=== PATIENT | female | born 1990 | race Caucasian/White ===

== ENCOUNTER 2022-06-29 10:29 | Emergency (ER) | payer BC, SELFPAY ==
[2022-06-29 10:39] VITALS: BP 141/71; PULSE 96; RESP 18; TEMP 36.1; O2SAT 97
--- NOTE | 2022-06-29 11:04 | ED.URI ---
HPI - URI/Sore Throat General Chief Complaint: Upper Respiratory Infection Stated Complaint: COVID SYMPTOMS Time Seen by Provider: 06/29/22 11:04 Source: patient Mode of arrival: ambulatory History of Present Illness HPI Narrative: 31-year-old female with a history of chronic headaches, 24 weeks presents to the ER with -- chronic frontal headaches. The headaches are bilateral. No photophobia/phonophobia. No fever or focal deficits -- she is 24 weeks without any complications at this time. -- She has nausea without any vomiting, abdominal pain or diarrhea. -- Sinus fullness with nasal congestion She saw her furniture delivery driver who advised her Fioricet. MD elicited complaint: nasal congestion Onset (ago): day(s) Consistency: intermittent Severity: moderate Able to tolerate fluids by mouth: Yes Exacerbating factors: nothing Relieving factors: nothing Associated symptoms: denies other symptoms and headache Related Data Home Medications Medication Instructions Recorded Confirmed [id number] 3-fat com #1 27 1 cap PO DAILY 06/29/22 06/29/22 mg-1 mg-300 mg capsule Allergies Allergy/AdvReac Type Severity Reaction Status Date / Time No Known Allergies Allergy Verified 06/29/22 10:50 Review of Systems Review of Systems: All systems reviewed & are unremarkable except as noted in HPI and below Constitutional: Constitutional: Reports as per HPI and Reports no additional constitutional complaints Eyes: Eyes: Reports as per HPI and Reports no additional eye complaints ENT: Reports system reviewed and no additional complaints, except as documented, Reports as per HPI and Reports nasal congestion Cardiovascular: Cardiovascular: Reports as per HPI and Reports no additional cardiovascular complaints Respiratory: Respiratory: Reports as per HPI and Reports no additional respiratory complaints Gastrointestinal: Gastrointestinal: Reports as per HPI and Reports no additional gastrointestinal complaints Genitourinary: Genitourinary: Reports no additional female genitourinary complaints and Reports as per HPI Musculoskeletal: Musculoskeletal: Reports no additional musculoskeletal complaints and Reports as per HPI Integumentary/Breasts: Skin/Breast: Reports system reviewed and no additional complaints, except as docu Neurologic: Reports system reviewed and no additional complaints, except as documented and Reports as per HPI Psychiatric: Psychiatric: Reports no additional psychiatric complaints and Reports as per HPI Endocrine: Endocrine: Reports no additional endocrine complaints and Reports as per HPI Hematologic/Lymphatic: Hematologic/Lymphatic: Reports no additional hematologic/lymphatic complaints and Reports as per HPI Allergic/Immunologic: Allergic/Immunologic: Reports no additional allergic/immunologic complaints and Reports as per HPI [facility] Surgical History Surgical History (Updated 06/29/22 @ 11:29 by Nawaf Gonzalez MD) Previous section Exam Const: General: healthy appearing Nutritional Appearance: well nourished Orientation/consciousness: patient oriented x3 Limitations: no limitations HENMT: Head: normal to inspection Ears: external ears normal General nose exam: Normal external nose present Face and sinus: normal facial exam Mouth: Yes Normal oral and palatal mucosa present Throat: posterior oropharynx normal Eyes: Conjunctivae: conjunctivae normal Pupils: Equal, round and reactive pupils present EOM: EOMs intact bilaterally Direct Ophthalmoscopy: no photophobia Neck: Neck: normal visual inspection, no lymphadenopathy and no meningeal signs Chest: Chest palpation & inspection: normal inspection of the chest Resp: Effort & Inspection: normal respiratory effort Auscultation: clear to auscultation bilaterally Cardio: Rate: regular rate Rhythm: regular rhythm GI: GI Palp: Yes Soft to palpation Auscultation: normal bowel sounds Other: no tendernes
[2022-06-29 11:29] LABS: Influenza A QL RT-PCR Negative (Negative); Influenza B QL RT-PCR Negative (Negative); SARS-CoV-2 RNA PCR Negative (Negative)
--- NOTE | 2022-06-29 11:47 | PC.NURSE ---
COVID and flu testing negative, fijimmy brought back from waiting room. Pt attempting to urinate for sample at this time.
[2022-06-29 11:53] LABS: Add Urine Microscopic? YES; Appearance Urine Clear (Clear); Bilirubin Urine Negative (Negative); Blood Urine Negative (Negative); Color Urine Yellow (Yellow); Glucose Urine UA Trace (Negative); Ketones Urine Negative (Negative); Leukocyte Esterase Ur Negative (Negative); Nitrate Urine Negative (Negative); Protein Urine Negative (Negative); Urobilinogen Urine 0.2 mg/dL (0.2-1.0)
[2022-06-29 11:57] LABS: Bacteria Urine 1+ /hpf; RBC Urine 0-2 /hpf (0-2); Squamous Epithelial Cell Urine Few /hpf (Few); WBC Urine 0-3 /hpf (0-3)
[2022-06-29 12:06] LABS: Basophils Absolute Auto 0.03 K/mm3 (0.00-0.10); Basophils Percent Auto 0.5 % (0.0-1.0); Eosinophils Percent Auto 1.5 % (1.0-6.0); Hematocrit 35.8 % (35.0-49.0); Hemoglobin 12.3 g/dL (12.0-15.0); Immature Granulocyte Absolute 0.03 K/mm3 (0.00-0.00); Immature Granulocyte Percent A 0.5 % (0.0-0.0); Lymphocytes Absolute Auto 1.05 K/mm3 (1.10-4.50); Lymphocytes Percent Auto 16.2 % (18.0-42.0); Mean Corpuscular HGB Conc 34.4 g/dL (32.0-36.0); Mean Corpuscular Hemoglobin 31.5 pg (27.0-31.0); Mean Corpuscular Volume 91.6 fL (78.0-102.0); Mean Platelet Volume 10.4 fl (9.2-11.8); Monocytes Absolute Auto 0.51 K/mm3 (0.10-0.90); Monocytes Percent Auto 7.8 % (2.0-11.0); Neutrophils Absolute Auto 4.8 K/mm3 (1.7-7.2); Neutrophils Percent Auto 73.5 % (50.0-70.0); Platelet Count Result 257 K/mm3 (150-420); Red Blood Count 3.91 M/mm3 (4.20-5.40); Red Cell Distribution Width 12.1 % (11.6-14.4); White Blood Count 6.5 K/mm3 (4.8-10.8)
[2022-06-29 12:23] LABS: Alanine Aminotransferase 16 U/L (14-59); Alkaline Phosphatase 76 U/L (46-116); Anion Gap 8 mmol/L (8-16); Aspartate Amino Transferase 15 U/L (15-37); Bilirubin,Total 0.2 mg/dL (0.00-1.00); Blood Urea Nitrogen 5 mg/dL (7-18); Calcium 9.1 mg/dL (8.5-10.1); Carbon Dioxide 25 mmol/L (21-32); Chloride 102 mmol/L (98-108); Estimated Glomerular Filt Rate > 60; Glucose 91 mg/dL (70-99); Osmolality Calculated 277 mOsm/kg (285-295); Potassium 3.8 mmol/L (3.5-5.1); Sodium 135 mmol/L (136-145); Total Protein 7.1 g/dL (6.4-8.2)
[2022-06-29] MEDS: METOCLOPRAMIDE HCL 10 MG/10 ML SOLN UDC PO (12:28)
[2022-06-29] MEDS: ACETAMINOPHEN 500 MG TABLET 1000 MG PO (12:28)
[2022-06-29 12:53] VITALS: BP 121/60; PULSE 84; RESP 16; TEMP 36.2; O2SAT 99
== END 2022-06-29 12:53 | disposition home or self-care (01) ==
PROVIDERS: Emergency Provider Internal Medicine Critical Care Medicine
DX: Z33.1 Pregnant state, incidental (principal); R51.9 Headache, unspecified; J06.9 Acute upper respiratory infection, unspecified; Z20.822 Contact with and (suspected) exposure to COVID-19
CPT/HCPCS: 36415; 80053; 81001; 85025; 87502; 99283; A9270; C9803; U0003; U0005

== ENCOUNTER 2022-07-01 21:03 | Emergency (ER) | payer BC, SELFPAY ==
--- NOTE | 2022-07-01 21:06 | ED.URI ---
HPI - URI/Sore Throat General Chief Complaint: Upper Respiratory Infection Stated Complaint: CONGESTION Time Seen by Provider: 07/01/22 21:06 Source: patient and RN notes reviewed Mode of arrival: ambulatory Limitations: no limitations History of Present Illness MD elicited complaint: cough and nasal congestion Onset (ago): day(s) (4) Consistency: constant Severity: moderate Description of mucous: clear Able to tolerate fluids by mouth: Yes Relieving factors: nothing Associated symptoms: fever (subjective), myalgias, headache, nasal congestion, cough, chest pain ( hurts her chest cough) and nausea Treatments prior to arrival: acetaminophen Related Data Home Medications Medication Instructions Recorded Confirmed [id number]-omega 3-fat com #1 27 1 cap PO DAILY 06/29/22 07/01/22 mg-1 mg-300 mg capsule Allergies Allergy/AdvReac Type Severity Reaction Status Date / Time No Known Allergies Allergy Verified 06/29/22 10:50 Review of Systems Review of Systems: All systems reviewed & are unremarkable except as noted in HPI and below PMFSH Past Medical History Medical History (Updated 07/02/22 @ 00:00 by Justo Matthew) Chronic headache Morbid obesity Surgical History Surgical History Previous section Social History Social History (Updated 07/01/22 @ 21:24 by Giovanny Hanks MD) Smoking status: Never smoker Exam Const: General: healthy appearing, no acute distress and alert Nutritional Appearance: obese morbidly obese Orientation/consciousness: patient oriented x3 Limitations: no limitations HENMT: Head: normal to inspection Ears: external ears normal Eyes: Conjunctivae: conjunctivae normal Pupils: Equal, round and reactive pupils present EOM: EOMs intact bilaterally Neck: Neck: normal visual inspection Resp: Effort & Inspection: normal respiratory effort Auscultation: clear to auscultation bilaterally Cardio: Rate: regular rate Rhythm: regular rhythm GI: GI Palp: Yes Soft to palpation and No Tenderness to palpation present (GI) Auscultation: normal bowel sounds Back/Spine/Pelvis: Cervical Spine: cervical ROM normal Thoracic/Lumbar Spine: thoraco-lumbar ROM normal Skin: General skin exam: normal color Rashes: no rashes Neuro: General: patient oriented x3, moves all extremities, no focal motor deficits and CN's II-XI intact bilaterally Speech: normal speech Gait exam (Neuro): Normal gait present Extrem: General: normal to inspection and no clubbing, cyanosis or edema Psych: Mental Status: mental status grossly normal Affect: normal affect Attitude: cooperative Course Vital Signs Vital signs: Vital Signs Temperature 36.7 C 07/01/22 21:14 Pulse Rate 90 07/01/22 21:14 Respiratory Rate 18 07/01/22 21:14 Blood Pressure 128/60 07/01/22 21:14 Pulse Oximetry 98 07/01/22 21:14 Oxygen Delivery Room Air 07/01/22 21:14 Temperature 36.7 C 07/01/22 21:14 Pulse Rate 80 07/01/22 22:53 Respiratory Rate 16 07/01/22 22:53 Blood Pressure 125/76 07/01/22 22:53 Pulse Oximetry 99 07/01/22 22:53 Oxygen Delivery Room Air 07/01/22 22:53 MDM - URI/Sore Throat Lab Data Attestation: I reviewed the patient's lab results. Result diagrams: 07/01/22 21:46 07/01/22 21:46 Labs: Lab Results 07/01/22 07/01/22 07/01/22 Range/Units 21:46 21:46 21:46 WBC 8.2 (4.8-10.8) K/mm3 RBC 3.79 L (4.20-5.40) M/mm3 Hgb 11.7 L (12.0-15.0) g/dL Hct 34.5 L (35.0-49.0) % MCV 91.0 (78.0-102.0) fL MCH 30.9 (27.0-31.0) pg MCHC 33.9 (32.0-36.0) g/dL RDW 11.9 (11.6-14.4) % Plt Count 258 (150-420) K/mm3 MPV 10.4 (9.2-11.8) fl Immature Gran % (Auto) 0.1 H (0.0-0.0) % Neut % (Auto) 76.4 H (50.0-70.0) % Lymph % (Auto) 17.0 L (18.0-42.0) % [place] % (Auto) 5.1 (2.0-11.0) % Eos % (Auto) 1.0 (1.0-6.0) % Baso
[2022-07-01 21:14] VITALS: BP 128/60; PULSE 90; RESP 18; TEMP 36.7; O2SAT 98
[2022-07-01 21:50] LABS: Basophils Absolute Auto 0.03 K/mm3 (0.00-0.10); Basophils Percent Auto 0.4 % (0.0-1.0); Eosinophils Absolute Auto 0.08 K/mm3 (0.02-0.50); Hematocrit 34.5 % (35.0-49.0); Hemoglobin 11.7 g/dL (12.0-15.0); Immature Granulocyte Absolute 0.01 K/mm3 (0.00-0.00); Immature Granulocyte Percent A 0.1 % (0.0-0.0); Mean Corpuscular HGB Conc 33.9 g/dL (32.0-36.0); Mean Corpuscular Hemoglobin 30.9 pg (27.0-31.0); Mean Platelet Volume 10.4 fl (9.2-11.8); Monocytes Absolute Auto 0.42 K/mm3 (0.10-0.90); Monocytes Percent Auto 5.1 % (2.0-11.0); Neutrophils Absolute Auto 6.3 K/mm3 (1.7-7.2); Neutrophils Percent Auto 76.4 % (50.0-70.0); Platelet Count Result 258 K/mm3 (150-420); Red Blood Count 3.79 M/mm3 (4.20-5.40); Red Cell Distribution Width 11.9 % (11.6-14.4); White Blood Count 8.2 K/mm3 (4.8-10.8)
[2022-07-01 22:07] LABS: Alanine Aminotransferase 14 U/L (14-59); Albumin Level 2.7 g/dL (3.4-5.0); Alkaline Phosphatase 73 U/L (46-116); Anion Gap 8 mmol/L (8-16); Aspartate Amino Transferase 14 U/L (15-37); Bilirubin,Total 0.2 mg/dL (0.00-1.00); Blood Urea Nitrogen 9 mg/dL (7-18); Carbon Dioxide 23 mmol/L (21-32); Chloride 104 mmol/L (98-108); Estimated Glomerular Filt Rate > 60; Glucose 154 mg/dL (70-99); Magnesium 1.9 mg/dL (1.8-2.4); Osmolality Calculated 281 mOsm/kg (285-295); Potassium 3.6 mmol/L (3.5-5.1); Sodium 135 mmol/L (136-145); Total Protein 6.5 g/dL (6.4-8.2)
[2022-07-01 22:09] LABS: Lactic Acid Reflex 1.1 mmol/L (0.4-2.0)
[2022-07-01 22:33] LABS: SARS-CoV-2 RNA PCR Negative (Negative)
[2022-07-01 22:53] VITALS: BP 125/76; PULSE 80; RESP 16; O2SAT 99
== END 2022-07-01 22:54 | disposition home or self-care (01) ==
PROVIDERS: Emergency Provider Emergency Medicine
DX: J06.9 Acute upper respiratory infection, unspecified (principal); Z20.822 Contact with and (suspected) exposure to COVID-19
CPT/HCPCS: 36415; 80053; 83605; 83735; 85025; 86140; 99283; C9803; U0003; U0005

== ENCOUNTER 2022-09-13 07:55 | Observation (INO) | payer OTHER, SELFPAY ==
[2022-09-13 08:16] VITALS: BP 118/61; PULSE 92
--- NOTE | 2022-09-13 08:22 | OBADM ---
This patient, Allegra Moon, admitted to the OB room OB Post 116 for observation. Patient/family oriented to hospital policies and general routines including ID bracelet, bed and alarms, visiting hours, pain management, procedures, bathroom and other care routines, personal items, smoking policy, room service/diet, and visiting hours. Patient/Family are encouraged to report perceived risks to care and to ask questions if they do not understand what they are told or what they should do.
[2022-09-13 08:31] VITALS: BP 113/60; PULSE 94
[2022-09-13 08:43] LABS: Appearance Urine Clear (Clear); Bilirubin Urine Negative (Negative); Blood Urine Negative (Negative); Color Urine Yellow (Yellow); Glucose Urine UA Negative (Negative); Ketones Urine 2+ mg/dL (Negative); Leukocyte Esterase Ur Negative LEU/UL (Negative); Nitrate Urine Negative (Negative); Protein Urine Negative (Negative); Specific Grav Ur 1.025 (1.001-1.035); Urobilinogen Urine 0.2 mg/dL (<2.0); pH Urine 5.5 (5.0-9.0)
[2022-09-13 08:45] VITALS: BP 112/56; PULSE 97
[2022-09-13 08:50] LABS: Bacteria Urine Trace /hpf; Mucus Urine Rare /lpf; RBC Urine 0-2 /hpf (0-2); Squamous Epithelial Cell Urine Few /hpf (Few); WBC Urine 0-3 /hpf
[2022-09-13 09:01] VITALS: BP 111/80; PULSE 98
[2022-09-13 09:07] LABS: Add Urine Microscopic? YES
[2022-09-13 09:16] VITALS: BP 113/67; PULSE 98
[2022-09-13 09:30] VITALS: BP 116/61; PULSE 95
[2022-09-13] MEDS: LOPERAMIDE HCL 2 MG CAPSULE 4 MG PO (09:33)
--- NOTE | 2022-10-04 03:23 | P.PNOB_ITS ---
OB - Triage/Final Diagnosis Visit Information Comments/Additional reasons for admission: I have assessed the risk for this patient, Allegra Moon, and determined that she would benefit from observation care. Evaluation Laboratory results: Laboratory Tests 09/13/22 08:13 Urine Color Yellow Urine Appearance Clear Urine pH 5.5 Ur Specific [place] 1.025 Urine Protein Negative Urine Glucose (UA) Negative Urine Ketones 2+ H Ur Blood (Man) Negative Urine Nitrate Negative Urine Bilirubin Negative Urine Urobilinogen 0.2 Leukocyte Esterase Rfl Negative Urine RBC 0-2 Urine WBC 0-3 Ur Squamous Epith Cells Few Urine Bacteria Trace Urine Mucus Rare Final Diagnosis (1) False labor: Code(s): O47.9 - False labor, unspecified Status: Acute
== END 2022-09-13 10:24 | disposition home or self-care (01) ==
PROVIDERS: Admitting Provider Obstetrics & Gynecology; Visit Provider Obstetrics & Gynecology
DX: O47.03 False labor before 37 completed weeks of gestation, third trimester (principal); Z3A.35 35 weeks gestation of pregnancy
CPT/HCPCS: 81001; A9270; G0378; G0379

== ENCOUNTER 2022-09-15 11:49 | Observation (INO) | payer OTHER, SELFPAY ==
[2022-09-15 12:40] VITALS: BP 97/51; PULSE 73
[2022-09-15 12:46] VITALS: BP 105/61; PULSE 78
[2022-09-15 13:01] VITALS: BP 91/58; PULSE 74
[2022-09-15] MEDS: LACTATED RINGERS 1,000 ML 125 ML IV CONT (13:21)
[2022-09-15] MEDS: cefTRIAXone 2 GM in SODIUM CHLORIDE 0.9% IV 100 ML 200 ML IVPB (13:23)
[2022-09-15 14:00] VITALS: BMI 44.1
--- NOTE | 2022-09-15 15:56 | PM.IMHP ---
H&P: HPI History of Present Illness Date/Time: 09/15/22 15:56 Chief Complaint: Diarrhea Narrative: this patient is a 32-year-old multiparous female at 35 weeks gestation who presents for evaluation treatment of acute diarrhea. Patient was exposed to a possibly salmonella. Multiple family members have acute diarrhea and 1 is known to have tested positive for salmonella. She has no fever currently. She feels some dizziness and is lightheaded. She has a complicated by gestational diabetes. We agreed to obtain stool sample and start antibiotics. Give her IV fluids today. She will be discharged shortly with a repeat prescription for 4 vials ceftriaxone. She will get 2 g every day for 2 days. Review of Systems Review of Systems: All systems reviewed & are unremarkable except as noted in HPI and below Constitutional: Constitutional: Denies chills, Denies fatigue, Denies fever(s) and Denies weakness Eyes: Eyes: Denies blurry vision, Denies change in vision, Denies loss of peripheral vision, Denies loss of vision, Denies other visual disturbances and Denies eye pain ENT: Denies vertigo, Denies dizziness, Denies hearing loss, Denies mouth pain, Denies nasal obstruction, Denies neck mass and Denies neck pain Cardiovascular: Cardiovascular: Denies chest pain, Denies diaphoresis, Denies syncope, Denies leg edema and Denies dyspnea Respiratory: Respiratory: Denies chest congestion, Denies cough, Denies hemoptysis, Denies dyspnea and Denies wheezing Gastrointestinal: Gastrointestinal: Denies abdominal pain, Denies constipation, Denies diarrhea, Denies nausea and Denies vomiting Genitourinary: Genitourinary: Denies hematuria, Denies change in libido, Denies nocturia, Denies genital lesions, Denies flank pain and Denies urinary urgency Musculoskeletal: Musculoskeletal: Denies abnormal gait, Denies back pain, Denies myalgias, Denies arthralgias, Denies joint swelling, Denies muscle weakness and Denies neck pain Integumentary/Breasts: Skin/Breast: Denies swelling, Denies breast pain, Denies breast mass, Denies dry skin, Denies nipple discharge, Denies unusual bruising and Denies jaundice Neurologic: Denies Neuro-related abnormal movements, Denies Abnormal speech present, Denies abnormal gait, Denies behavioral changes, Denies confusion, Denies vertigo, Denies dizziness, Denies syncope, Denies loss of vision, Denies memory loss, Denies convulsions and Denies weakness Psychiatric: Psychiatric: Denies abnormal sleep pattern, Denies behavioral changes, Denies change in libido, Denies confusion, Denies depression, Denies anhedonia and Denies memory loss Endocrine: Endocrine: Reports no additional endocrine complaints, Denies change in libido and Denies fatigue Hematologic/Lymphatic: Hematologic/Lymphatic: Reports no additional hematologic/lymphatic complaints Allergic/Immunologic: Allergic/Immunologic: Reports no additional allergic/immunologic complaints and Denies wheezing PMFSH Past Medical History Medical History (Updated 09/15/22 @ 16:03 by Tab Ellsworth MD) Chronic headache Morbid obesity Surgical History Surgical History Previous section Social History Social History (Updated 07/01/22 @ 21:24 by Giovanny Hanks MD) Smoking status: Never smoker Meds Home Medications and Allergies Home Medications Medication Instructions Recorded Confirmed Type [id number]-[id number]-omega 3-fat com #1 27 1 cap PO DAILY 06/29/22 09/13/22 History mg-1 mg-300 mg capsule insulin NPH isoph U-100 human 100 30 unit subcut HS 09/13/22 09/13/22 History unit/mL subcutaneous cartridge Allergies Allergy/AdvReac Type Severity Reaction Status Date / Time No Known Allergies Allergy Verified 06/29/22 10:50 Vital Signs Vital Signs - 24 hr 09/15/22 12:40 09/15/22 12:46 09/15/22 13:01 Pulse Rate 73 78 74 Blood Pressure 97/51 L 105/61 91/58 L Exam Const:
[2022-09-15 17:19] VITALS: BP 91/58; PULSE 74
--- NOTE | 2022-10-14 02:06 | PM.OBTRLD ---
OB - Triage/Final Diagnosis Visit Information Comments/Additional reasons for admission: I have assessed the risk for this patient, Allegra Moon, and determined that she would benefit from observation care. Final Diagnosis (1) False labor: Code(s): O47.9 - False labor, unspecified Status: Acute
== END 2022-09-15 16:25 | disposition home or self-care (01) ==
PROVIDERS: Admitting Provider Obstetrics & Gynecology; Visit Provider Obstetrics & Gynecology
DX: O26.893 Other specified pregnancy related conditions, third trimester (principal); R19.7 Diarrhea, unspecified; O24.419 Gestational diabetes mellitus in pregnancy, unspecified control; Z3A.35 35 weeks gestation of pregnancy; Z79.4 Long term (current) use of insulin; Z79.899 Other long term (current) drug therapy
CPT/HCPCS: 59025; 87045; 87186; 87427; 96374; G0378; G0379; J0696; J7120

== ENCOUNTER 2022-09-22 18:19 | Observation (INO) | payer OTHER, SELFPAY ==
[2022-09-22] VITALS (19 sets, daily range): BP systolic 111–121; BP diastolic 56–73; PULSE 92–111; TEMP 36.9–37.7; O2SAT 98–99
--- NOTE | 2022-09-22 18:19 | PC.NURSE ---
PT here for complains of cramping. states she had c section with first baby due to macrosomia. Pt states she has back pain, has not drink much water because having nausea. urine appears dark. encouraged PO hydration.
[2022-09-22 19:26] LABS: Appearance Urine Clear (Clear); Bilirubin Urine 1+ (Negative); Blood Urine Negative (Negative); Color Urine Yellow (Yellow); Glucose Urine UA Negative (Negative); Ketones Urine 4+ mg/dL (Negative); Leukocyte Esterase Ur Negative LEU/UL (Negative); Nitrate Urine Negative (Negative); Protein Urine 2+ mg/dL (Negative); Specific Grav Ur 1.025 (1.001-1.035); Urobilinogen Urine 0.2 mg/dL (<2.0)
[2022-09-22 19:29] LABS: Bacteria Urine Trace /hpf; Mucus Urine Rare /lpf; Squamous Epithelial Cell Urine Many /hpf (Few)
[2022-09-22 19:30] LABS: Add Urine Microscopic? YES
[2022-09-22] MEDS: ACETAMINOPHEN 500 MG TABLET 1000 MG PO (20:14)
[2022-09-22] MEDS: LACTATED RINGERS 1,000 ML 999 ML IV CONT (21:34)
[2022-09-22] MEDS: TERBUTALINE SULFATE 1 MG/ML VIAL 0.25 MG SUB-Q (21:34)
[2022-09-22 21:41] LABS: Basophils Percent Auto 0.3 % (0.2-1.2); Eosinophils Percent Auto 0.4 % (0-4.4); Hematocrit 35.8 % (37.0-47.0); Hemoglobin 11.9 g/dL (12.0-15.0); Immature Granulocyte Absolute 0.05 K/mm3 (0.00-0.031); Immature Granulocyte Percent A 0.7 % (0-0.5); Lymphocytes Absolute Auto 0.82 K/mm3 (0.9-3.2); Lymphocytes Percent Auto 10.7 % (18.3-44.2); Mean Corpuscular HGB Conc 33.2 g/dl (32-36); Mean Corpuscular Hemoglobin 30.3 pg (26-34); Mean Corpuscular Volume 91.1 fl (80-100); Mean Platelet Volume 10.5 fl (7.4-10.4); Monocytes Absolute Auto 0.4 K/mm3 (0.1-0.6); Monocytes Percent Auto 4.6 % (2.6-8.5); Neutrophils Absolute Auto 6.4 K/mm3 (1.3-6.7); Neutrophils Percent Auto 83.3 % (45.5-73.1); Platelet Count Result 252 k/mm3 (150-375); Red Blood Count 3.93 M/mm3 (4.2-5.4); Red Cell Distribution Width 12.8 % (11.5-14.5); White Blood Count 7.7 K/mm3 (4.5-10.0)
--- NOTE | 2022-10-14 01:56 | P.PNOB_ITS ---
OB - Triage/Final Diagnosis Visit Information Comments/Additional reasons for admission: I have assessed the risk for this patient, Allegra Moon, and determined that she would benefit from observation care. Evaluation Laboratory results: Laboratory Tests 09/22/22 09/22/22 19:14 21:37 WBC 7.7 RBC 3.93 L Hgb 11.9 L Hct 35.8 L MCV 91.1 MCH 30.3 MCHC 33.2 RDW 12.8 Plt Count 252 MPV 10.5 H Immature Gran % (Auto) 0.7 H Neut % (Auto) 83.3 H Lymph % (Auto) 10.7 L [place] % (Auto) 4.6 Eos % (Auto) 0.4 Baso % (Auto) 0.3 Lymph # (Auto) 0.82 L [place] # (Auto) 0.4 Eos # (Auto) 0.0 Baso # (Auto) 0.0 Abs Immat Gran (auto) 0.05 H Absolute Neuts (auto) 6.4 Absolute Nucleated RBC 0.0 Nucleated RBC % 0.0 Urine Color Yellow Urine Appearance Clear Urine pH 6.0 Ur Specific [place] 1.025 Urine Protein 2+ H Urine Glucose (UA) Negative Urine Ketones 4+ H Ur Blood (Man) Negative Urine Nitrate Negative Urine Bilirubin 1+ H Urine Urobilinogen 0.2 Leukocyte Esterase Rfl Negative Urine RBC 3-5 H Urine WBC 4-6 H Ur Squamous Epith Cells Many H Urine Bacteria Trace Urine Mucus Rare Final Diagnosis (1) False labor: Code(s): O47.9 - False labor, unspecified Status: Acute
== END 2022-09-22 22:45 | disposition home or self-care (01) ==
PROVIDERS: Admitting Provider Obstetrics & Gynecology; Visit Provider Obstetrics & Gynecology
DX: O47.9 False labor, unspecified (principal); Z3A.36 36 weeks gestation of pregnancy
CPT/HCPCS: 36415; 81001; 85025; 96372; A9270; G0378; G0379; J3105; J7120

== ENCOUNTER 2022-09-29 21:37 | Observation (INO) | payer OTHER, SELFPAY ==
[2022-09-29 22:27] LABS: Glucose Point of Care 112 mg/dl (65-105)
[2022-09-29 22:37] VITALS: BP 117/65; PULSE 83; RESP 18; TEMP 36.4
--- NOTE | 2022-09-29 22:50 | PC.NURSE ---
PT appeared to have some uterine irritability. Upon RN entering room PT pushing on TOCO. PT advised not to push on or alter TOCO because it can give false results. PT verbalizes understanding.
--- NOTE | 2022-09-29 23:00 | PC.NURSE ---
Dr. Ellsworth notified of PTs arrival to unit with c/o of increased blood sugars in the 180s. BS on admission was 112, RN instructed PT to take BS on her machine at this time and the results were 149. Vitals WNL. PT states she feels some contractions. PT appears to have some Uterine irritability but, Upon walking in PTs room RN noticed PT pushing on TOCO. RN at bedside to palpate abdomen, abdomen soft to palpation. Per Dr. Ellsworth PT to take insulin when she gets home. Discharge orders received.
[2022-09-29 23:09] VITALS: BMI 45.6
--- NOTE | 2022-09-29 23:11 | OBADM ---
This patient, Allegra Moon, admitted to the OB room OB Post 117 for observation. Patient/family oriented to hospital policies and general routines including ID bracelet, bed and alarms, visiting hours, pain management, procedures, bathroom and other care routines, personal items, smoking policy, room service/diet, and visiting hours. Patient/Family are encouraged to report perceived risks to care and to ask questions if they do not understand what they are told or what they should do.
--- NOTE | 2022-09-29 23:20 | PC.NURSE ---
RNTab at bedside discharge instructions explained to PT. PT advised to take insulin when returning home. RN explained plan of care to PT and significant other. PT verbalizes understanding.
--- NOTE | 2022-10-23 20:45 | PM.OBTRLD ---
OB - Triage/Final Diagnosis Visit Information Comments/Additional reasons for admission: I have assessed the risk for this patient, Allegra Moon, and determined that she would benefit from observation care. Evaluation Laboratory results: Laboratory Tests 09/29/22 22:00 POC Capillary Glucose 112 H Final Diagnosis (1) Gestational diabetes: Code(s): O24.419 - Gestational diabetes mellitus in , unspecified control Status: Acute
== END 2022-09-29 23:25 | disposition home or self-care (01) ==
PROVIDERS: Admitting Provider Obstetrics & Gynecology; Visit Provider Obstetrics & Gynecology
DX: O24.419 Gestational diabetes mellitus in pregnancy, unspecified control (principal); Z3A.00 Weeks of gestation of pregnancy not specified
CPT/HCPCS: 82948; G0378; G0379

== ENCOUNTER 2022-10-04 18:16 | Observation (INO) | payer OTHER, SELFPAY ==
[2022-10-04] VITALS (7 sets, daily range): BP systolic 116–141; BP diastolic 48–71; PULSE 90–153; BMI 46.6
[2022-10-04 20:44] LABS: Glucose Point of Care 93 mg/dl (65-105)
--- NOTE | 2022-10-04 21:10 | ECG_ITS ---
Measurements Intervals [place] Rate: 100 P: 6 DE: 143 QRS: 63 QRSD: 101 T: 0 QT: 345 QTc: 446 Interpretive Statements SINUS TACHYCARDIA BORDERLINE ECG NO PREVIOUS ECG AVAILABLE FOR COMPARISON Electronically Signed On 10-11-2022 17:30:03 [employer] by Luis Manuel Mejia M.D.
--- NOTE | 2022-10-04 23:30 | LDADM ---
This patient, Allegra Moon, was admitted to Labor/Delivery/Recovery 120 on 10/04/22 at 18:16. Plans for labor, pain management and were discussed with patient. Patient/family oriented to hospital policies and general routines including ID bracelet, bed and alarms, visiting hours, pain management, procedures, bathroom and other care routines, personal items, smoking policy, room service/diet and guest tray routines, infant security routines, and visiting hours. Patient/Family are encouraged to report perceived risks to care and to ask questions if they do not understand what they are told or what they should do. See OBIX for further documentation.
--- NOTE | 2022-10-24 08:43 | PM.OBTRLD ---
OB - Triage/Final Diagnosis Visit Information Comments/Additional reasons for admission: I have assessed the risk for this patient, Allegra Moon, and determined that she would benefit from observation care. Evaluation Laboratory results: Laboratory Tests 10/04/22 20:41 POC Capillary Glucose 93 Final Diagnosis (1) Irregular contractions: Code(s): O47.9 - False labor, unspecified Status: Acute
== END 2022-10-04 22:45 | disposition other institution (70) ==
PROVIDERS: Admitting Provider Obstetrics & Gynecology; Visit Provider Obstetrics & Gynecology
DX: O47.9 False labor, unspecified (principal); O24.419 Gestational diabetes mellitus in pregnancy, unspecified control; Z3A.00 Weeks of gestation of pregnancy not specified
CPT/HCPCS: 82948; 93005; G0378; G0379

== ENCOUNTER 2022-10-04 22:13 | Emergency (ER) | payer OTHER, SELFPAY ==
--- NOTE | ~2022-10-04 | CT_ITS ---
Clinical Indication: Tachypnea, dyspnea CT Scan of the Chest with Contrast: Technique: Contiguous sections were acquired throughout the chest after intravenous administration of 100 cc of Omnipaque 350. Dose reduction technique was used on this scan by utilizing automated expos ure control and iterative reconstruction technique. The dose-length product (DLP) was 727.73 mGy-cm. Findings: There is no evidence of any significant mediastinal, hilar or axillary lymphadenopathy. There is no f illing defect in the pulmonary arterial tree to suggest pulmonary embolus. There is no evidence of ao rtic dissection or aneurysm. There is no evidence of pleural or pericardial effusion. There are 2 adjacent 3 mm left lower lobe pulmonary nodules (axial image 54). Lungs are otherwise andrea ar. Images through the upper abdomen reveal no abnormalities. Impression: No evidence of pulmonary embolus, aortic dissection, or aortic aneurysm. 2 adjacent 3 mm left lower lobe pulmonary nodules. According to Fleischner Society criteria, for a lo w-risk patient, no further follow-up required. For a high-risk patient, consider 12 month follow-up C T. Reviewed, dictated and finalized at location . [employer] Impression: No evidence of pulmonary embolus, aortic dissection, or aortic aneurysm. 2 adjacent 3 mm left lower lobe pulmonary nodules. According to Fleischner Soci ety criteria, for a low-risk patient, no further follow-up required. For a high -risk patient, consider 12 month follow-up CT.
[2022-10-04 22:18] VITALS: BP 123/77; PULSE 93; RESP 19; TEMP 36.6; O2SAT 98
--- NOTE | 2022-10-04 22:42 | ED.GENADULT ---
HPI - General Adult General Chief complaint: Unspecified Stated complaint: Unspecified Time Seen by Provider: 10/04/22 22:24 History of Present Illness HPI narrative: patient presented to OB with contractions; while there they saw that her HR was 153 (? though patient stated she had no sensation of heart racing at this time). She does report some dyspnea but has had this in the latter part of . Related Data Home Medications Medication Instructions Recorded Confirmed YEO-leyy-CE-omega 3-fat com #1 27 1 cap PO DAILY 06/29/22 09/13/22 mg-1 mg-300 mg capsule insulin NPH isoph U-100 human 100 30 unit subcut HS 09/13/22 09/13/22 unit/mL subcutaneous cartridge Allergies Allergy/AdvReac Type Severity Reaction Status Date / Time No Known Allergies Allergy Verified 10/04/22 22:23 Review of Systems Review of Systems: CONST: No fever. HEENT: No sore throat C/V: No palpitations RESP: Some shortness of breath GI: mild epigastric discomfort : No dysuria. M/S: No joint pain. SKIN: No rash. NEURO: [No headache or focal numbness or weakness] PSYCH: [No depression] [facility] Past Medical History Medical History Chronic headache Morbid obesity Surgical History Surgical History Previous section Social History Social History Smoking status: Never smoker Substance use: never Spiritual care concerns: No Exam Narrative: EXAMINATION OF ORGAN SYSTEMS/BODY AREAS: Constitutional: Vital signs per nursing GENERAL:[No acute distress, non-toxic appearing.] HEAD: Normal with no signs of head trauma. EYES: EOMI, conjunctiva normal ENT: Hearing grossly intact LUNGS: Nonlabored breathing. HEART: [Regular rate and rhythm] ABD: [Soft], [nontender to palpation] EXT: Normal range of motion, no lower extremity edema SKIN: [No rashes or lesions.] NEURO: [Alert and oriented x 3. No gross focal sensory or strength deficits.] PSYCH: Normal affect Course Vital Signs Vital signs: Vital Signs Temperature 97.8 F 10/04/22 22:18 Pulse Rate 93 10/04/22 22:18 Respiratory Rate 19 10/04/22 22:18 Blood Pressure 123/77 10/04/22 22:18 Pulse Oximetry 98 10/04/22 22:18 Oxygen Delivery Room Air 10/04/22 22:18 Temperature 97.8 F 10/04/22 22:18 Pulse Rate 92 10/05/22 02:18 Respiratory Rate 16 10/05/22 02:18 Blood Pressure 116/75 10/04/22 23:36 Pulse Oximetry 98 10/05/22 02:18 Oxygen Delivery Room Air 10/04/22 22:18 Medical Decision Making MDM Narrative Medical decision making narrative: 32-year-old woman presenting with dyspnea, sent by OB because she is suspected to be tachycardic, given her risk factors and reported tachycardia and dyspnea, I will obtain work-up for ruling out PE. No signs of ischemia on EKG. D-dimer is elevated. CT PE therefore obtained here which is negative for PE. Patient reassured and stable for discharge home, given return precautions and follow-up to her primary/[facility]. Vital Signs Vital Signs: Vital Signs Temperature 97.8 F 10/04/22 22:18 Pulse Rate 93 10/04/22 22:18 Respiratory Rate 19 10/04/22 22:18 Blood Pressure 123/77 10/04/22 22:18 Pulse Oximetry 98 10/04/22 22:18 Oxygen Delivery Room Air 10/04/22 22:18 Temperature 97.8 F 10/04/22 22:18 Pulse Rate 92 10/05/22 02:18 Respiratory Rate 16 10/05/22 02:18 Blood Pressure 116/75 10/04/22 23:36 Pulse Oximetry 98 10/05/22 02:18 Oxygen Delivery Room Air 10/04/22 22:18 Lab Data 10/04/22 22:55 10/04/22 22:55 Labs: Lab Results 10/04/22 10/04/22 10/04/22 Range/Units 22:55 22:55 22:55 WBC 8.9 (4.5-10.0) K/mm3 RBC 4.35 (4.2-5.4) M/mm3 Hgb 13.0 (12.0-15.0) g/dL Hct 39.6 (37.0-47.0) % MCV 91.0 (80-100) fl MCH 29.9 (26-34) p
[2022-10-04 23:01] LABS: Basophils Percent Auto 0.3 % (0.2-1.2); Eosinophils Absolute Auto 0.1 K/mm3 (0-0.3); Eosinophils Percent Auto 1.1 % (0-4.4); Hematocrit 39.6 % (37.0-47.0); Immature Granulocyte Absolute 0.03 K/mm3 (0.00-0.031); Immature Granulocyte Percent A 0.3 % (0-0.5); Lymphocytes Absolute Auto 1.99 K/mm3 (0.9-3.2); Lymphocytes Percent Auto 22.3 % (18.3-44.2); Mean Corpuscular HGB Conc 32.8 g/dl (32-36); Mean Corpuscular Hemoglobin 29.9 pg (26-34); Mean Platelet Volume 10.5 fl (7.4-10.4); Monocytes Absolute Auto 0.5 K/mm3 (0.1-0.6); Monocytes Percent Auto 5.6 % (2.6-8.5); Neutrophils Absolute Auto 6.3 K/mm3 (1.3-6.7); Neutrophils Percent Auto 70.4 % (45.5-73.1); Platelet Count Result 292 k/mm3 (150-375); Red Blood Count 4.35 M/mm3 (4.2-5.4); Red Cell Distribution Width 13.2 % (11.5-14.5); White Blood Count 8.9 K/mm3 (4.5-10.0)
[2022-10-04 23:11] LABS: Anion Gap 5 mmol/L (8-16); Blood Urea Nitrogen 10 mg/dL (7-17); Calcium 9.3 mg/dL (8.4-10.2); Carbon Dioxide 22 mmol/L (22-30); Chloride 109 mmol/L (98-107); Estimated CRCL calculation 236 ml/min; Estimated Glomerular Filt Rate > 60; Glucose 102 mg/dL (65-110); Potassium 4.1 mmol/L (3.4-5.0); Sodium 136 mmol/L (137-145)
[2022-10-04 23:29] LABS: D Dimer 1.28 ug/mL (<0.48)
[2022-10-04 23:36] VITALS: BP 116/75; PULSE 89; RESP 18; O2SAT 97
[2022-10-05 02:18] VITALS: PULSE 92; RESP 16; O2SAT 98
== END 2022-10-05 02:19 | disposition home or self-care (01) ==
PROVIDERS: Emergency Provider Emergency Medicine
DX: O26.899 Other specified pregnancy related conditions, unspecified trimester (principal); R06.00 Dyspnea, unspecified; O99.210 Obesity complicating pregnancy, unspecified trimester; E66.01 Morbid (severe) obesity due to excess calories; Z3A.00 Weeks of gestation of pregnancy not specified; Z79.4 Long term (current) use of insulin
CPT/HCPCS: 36415; 71275; 80048; 85025; 85380; 99284; Q9967

== ENCOUNTER 2022-10-10 11:32 | Outpatient (RCR) | payer OTHER, SELFPAY ==
[2022-09-19 16:49] VITALS: BP 115/58; PULSE 86
[2022-09-26 13:37] VITALS: BP 110/52; PULSE 86
[2022-10-10 12:30] VITALS: BP 114/78; PULSE 88
== END 2022-10-14 13:36 | disposition home or self-care (01) ==
LOC: ANHOBOP 11:32
PROVIDERS: Visit Provider Obstetrics & Gynecology
DX: O36.8130 Decreased fetal movements, third trimester, not applicable or unspecified (principal); Z3A.35 35 weeks gestation of pregnancy; O36.8390 Maternal care for abnormalities of the fetal heart rate or rhythm, unspecified trimester, not applicable or unspecified; Z3A.36 36 weeks gestation of pregnancy; O24.419 Gestational diabetes mellitus in pregnancy, unspecified control; Z3A.38 38 weeks gestation of pregnancy
CPT/HCPCS: 59025

== ENCOUNTER 2022-10-11 09:41 | Inpatient (IN) | payer OTHER, SELFPAY ==
[2022-10-04 20:16] VITALS: BMI 46.6
[2022-10-11] VITALS (50 sets, daily range): BP systolic 96–130; BP diastolic 57–82; PULSE 25–106; RESP 14–20; TEMP 36.1–36.4; O2SAT 95–100
[2022-10-11] MEDS: LACTATED RINGERS 1,000 ML 125 ML IV CONT ×2 (10:38→11:21)
[2022-10-11 10:44] LABS: Basophils Percent Auto 0.4 % (0.2-1.2); Eosinophils Absolute Auto 0.1 K/mm3 (0-0.3); Eosinophils Percent Auto 1.5 % (0-4.4); Hematocrit 37.1 % (37.0-47.0); Hemoglobin 12.4 g/dL (12.0-15.0); Immature Granulocyte Absolute 0.03 K/mm3 (0.00-0.031); Immature Granulocyte Percent A 0.4 % (0-0.5); Lymphocytes Absolute Auto 1.57 K/mm3 (0.9-3.2); Lymphocytes Percent Auto 23.3 % (18.3-44.2); Mean Corpuscular HGB Conc 33.4 g/dl (32-36); Mean Corpuscular Volume 89.6 fl (80-100); Monocytes Absolute Auto 0.5 K/mm3 (0.1-0.6); Neutrophils Absolute Auto 4.5 K/mm3 (1.3-6.7); Neutrophils Percent Auto 66.4 % (45.5-73.1); Platelet Count Result 235 k/mm3 (150-375); Red Blood Count 4.14 M/mm3 (4.2-5.4); Red Cell Distribution Width 12.9 % (11.5-14.5); White Blood Count 6.8 K/mm3 (4.5-10.0)
--- NOTE | 2022-10-11 11:39 | WPDHPUPDATE1 ---
History and Physical Update Update Date/Time: 10/11/22 11:39 History and Physical has been reviewed, including an updated exam of the patient. There are NO changes in the patient's condition. Risks, benefits, and alternatives have been discussed and questions answered. Patient agrees to proceed with procedure.
--- NOTE | 2022-10-11 11:40 | PM.IMHP ---
H&P: [facility] History of Present Illness Date/Time: 10/11/22 11:40 Chief Complaint: previous Narrative: this patient is a 32-year-old multiparous female with history of previous at 39 weeks gestation presents for repeat delivery. She understands that delivery can result in injury. She understands that surgical injury could result in hospitalization, more surgery, and severe illness. She understands risk of hemorrhage and infection. Her obstetric history is significant for macrosomia, gestational diabetes. Review of Systems Review of Systems: All systems reviewed & are unremarkable except as noted in HPI and below Constitutional: Constitutional: Denies chills, Denies fatigue, Denies fever(s) and Denies weakness Eyes: Eyes: Denies blurry vision, Denies change in vision, Denies loss of peripheral vision, Denies loss of vision, Denies other visual disturbances and Denies eye pain ENT: Denies vertigo, Denies dizziness, Denies hearing loss, Denies mouth pain, Denies nasal obstruction, Denies neck mass and Denies neck pain Cardiovascular: Cardiovascular: Denies chest pain, Denies diaphoresis, Denies syncope, Denies leg edema and Denies dyspnea Respiratory: Respiratory: Denies chest congestion, Denies cough, Denies hemoptysis, Denies dyspnea and Denies wheezing Gastrointestinal: Gastrointestinal: Denies abdominal pain, Denies constipation, Denies diarrhea, Denies nausea and Denies vomiting Genitourinary: Genitourinary: Denies hematuria, Denies change in libido, Denies nocturia, Denies genital lesions, Denies flank pain and Denies urinary urgency Musculoskeletal: Musculoskeletal: Denies abnormal gait, Denies back pain, Denies myalgias, Denies arthralgias, Denies joint swelling, Denies muscle weakness and Denies neck pain Integumentary/Breasts: Skin/Breast: Denies swelling, Denies breast pain, Denies breast mass, Denies dry skin, Denies nipple discharge, Denies unusual bruising and Denies jaundice Neurologic: Denies Neuro-related abnormal movements, Denies Abnormal speech present, Denies abnormal gait, Denies behavioral changes, Denies confusion, Denies vertigo, Denies dizziness, Denies syncope, Denies loss of vision, Denies memory loss, Denies convulsions and Denies weakness Psychiatric: Psychiatric: Denies abnormal sleep pattern, Denies behavioral changes, Denies change in libido, Denies confusion, Denies depression, Denies anhedonia and Denies memory loss Endocrine: Endocrine: Reports no additional endocrine complaints, Denies change in libido and Denies fatigue Hematologic/Lymphatic: Hematologic/Lymphatic: Reports no additional hematologic/lymphatic complaints Allergic/Immunologic: Allergic/Immunologic: Reports no additional allergic/immunologic complaints and Denies wheezing PMFSH Past Medical History Medical History Chronic headache Morbid obesity Surgical History Surgical History Previous section Social History Social History Smoking status: Never smoker Second hand tobacco smoke exposure: No Substance use: never Lack of Transportation: No Lack of Food: Never True Current Housing: I Have Housing Concerned About Future Housing: No Difficulty Paying Gas/Electric Bills: No Difficulty Paying for Meds: No Currently Unemployed: No Education: High School Diploma/GED Difficulty w/ Childcare or Family Care: No Spiritual care concerns: No Meds Home Medications and Allergies Home Medications Medication Instructions Recorded Confirmed Type [id number] 3-fat com #1 27 1 cap PO DAILY 06/29/22 10/11/22 History mg-1 mg-300 mg capsule insulin NPH isoph U-100 human 100 30 unit subcut HS 09/13/22 10/11/22 History unit/mL subcutaneous cartridge Allergies Allergy/AdvReac Type Severity Reaction Stat
[2022-10-11] MEDS: ceFAZolin 3 GM/D5W 100 ML 100 ML IVPB (12:01)
--- NOTE | 2022-10-11 13:41 | W.PM.PROC2 ---
Procedure Note - Detailed Date of Procedure 10/11/22 Pre-op Diagnosis Prev Post-op Diagnosis Same Procedure Performed Low-transverse section Surgeon Tab Ellsworth MD Anesthesia Spinal Findings Normal gestational maternal anatomy, average size infant, normal Apgars. Description of Procedure The patient was taken the operating room. She was prepped and draped in dorsal supine position with a leftward tilt. This was done after spinal anesthetic was applied. A low-transverse skin incision was made and carried down till of the fascia with the knife. The fascial incision was made with the knife. The fascial incision was extended laterally with Palmer scissors. The fascia was tented upward superiorly and inferiorly the rectus muscles were dissected off bluntly. The rectus muscles were the midline. The preperitoneal fat and peritoneum were dissected open bluntly at the superior aspect of the rectus muscles. The peritoneal incision was extended superior and inferior with good position of bladder. The uterine incision was made with a scalpel down to the level of the amniotic cavity. The amniotic cavity was entered bluntly. The infant was delivered. The cord was clamped and cut and the was handed off to waiting pediatric staff. Cord bloods were obtained. The placenta was removed manually. The uterus was exteriorized. The uterus was cleared of all clots, debris and membranes. The uterus was closed in 0 Vicryl running lock fashion. An imbricating over a was placed along the incision line as well. The uterus was returned to the abdomen. The gutters were cleared of all clots and debris. The fascia was closed with 0 Vicryl running fashion. The subcutaneous tissue was irrigated pinpoint bleeders were cauterized.Subcutaneous found was closed with a 3-0 Vicryl, in interrupted fashion. The skin was closed with subcuticular absorbable sammi. The skin incision line was covered with glue. The patient tolerated the procedure well. She has taken recovery room in stable condition. Sponge lap and needle counts were correct x2. Complications No immediate complications Condition Stable Disposition PACU
[2022-10-11] MEDS: KETOROLAC 30 MG/ML VIAL (*BKC) IV PUSH ×2 (13:58→17:11)
[2022-10-11 13:59] LABS: Glucose Point of Care 97 mg/dl (65-105)
[2022-10-11] MEDS: OXYTOCIN 30 UNITS/NS 500 ML 30 UNITS/500 ML BAG 125 UNITS IV CONT (14:35)
[2022-10-11] MEDS: diphenhydrAMINE HCl INJ 50 MG/ML VIAL 25 MG IV PUSH ×2 (14:56→22:16)
[2022-10-11] MEDS: LORATADINE 10 MG TABLET PO (14:58)
[2022-10-11] MEDS: DEXTROSE 5%/0.45% SOD CHL 1,000 ML 125 ML IV CONT (18:45)
[2022-10-11] MEDS: ACETAMINOPHEN 325 MG TABLET 650 MG PO (22:16)
[2022-10-12 01:00] VITALS: BP 127/74; PULSE 82; RESP 18; TEMP 36.2
[2022-10-12] MEDS: IBUPROFEN 600 MG TABLET PO ×3 (02:50→19:12)
[2022-10-12 04:35] VITALS: BP 119/57; PULSE 83; RESP 18; TEMP 36.6
[2022-10-12 05:15] LABS: Basophils Percent Auto 0.4 % (0.2-1.2); Eosinophils Absolute Auto 0.1 K/mm3 (0-0.3); Eosinophils Percent Auto 1.6 % (0-4.4); Hematocrit 34.1 % (37.0-47.0); Hemoglobin 11.2 g/dL (12.0-15.0); Immature Granulocyte Absolute 0.03 K/mm3 (0.00-0.031); Immature Granulocyte Percent A 0.4 % (0-0.5); Lymphocytes Absolute Auto 1.63 K/mm3 (0.9-3.2); Lymphocytes Percent Auto 20.6 % (18.3-44.2); Mean Corpuscular HGB Conc 32.8 g/dl (32-36); Mean Corpuscular Hemoglobin 29.9 pg (26-34); Mean Corpuscular Volume 90.9 fl (80-100); Mean Platelet Volume 11.1 fl (7.4-10.4); Monocytes Absolute Auto 0.5 K/mm3 (0.1-0.6); Monocytes Percent Auto 6.5 % (2.6-8.5); Neutrophils Absolute Auto 5.6 K/mm3 (1.3-6.7); Neutrophils Percent Auto 70.5 % (45.5-73.1); Platelet Count Result 208 k/mm3 (150-375); Red Blood Count 3.75 M/mm3 (4.2-5.4); Red Cell Distribution Width 12.9 % (11.5-14.5); White Blood Count 7.9 K/mm3 (4.5-10.0)
[2022-10-12] MEDS: ACETAMINOPHEN 325 MG TABLET 650 MG PO ×3 (07:59→23:26)
[2022-10-12] MEDS: MULTIVIT/MIN/PREN/FOL AC/IRON TABLET 1 TAB PO (07:59)
[2022-10-12] MEDS: DOCUSATE SODIUM 100 MG CAPSULE PO ×2 (08:00→17:24)
[2022-10-12 08:55] VITALS: BP 115/63; PULSE 88; RESP 18; TEMP 36.8; O2SAT 98
--- NOTE | 2022-10-12 09:51 | WPDANLDNPN2 ---
Anes-Prog Note L&D-Neuraxial Date/Time: 10/12/22 09:51 Neuraxial medications: intrathecal PF morphine Opiod-related complaints: pruritis moderate, treatment effective Patient feedback: Patient satisfied with post-operative pain management.
--- NOTE | 2022-10-12 09:52 | WPDANLDPN2 ---
Anes-Prog Note L&D Date/Time: 10/12/22 09:52 Comfortable throughout: section Neuraxial method: spinal Epidural/Spinal procedure site: clean & non-tender Neuro status: Neuro function grossly intact. Cardiovascular status: normal Respiratory status: normal Airway patency: baseline Mental status: baseline Post-Op hydration status: normal Vital Signs: Last Vital Signs Temp 98.3 F 10/12/22 08:55 Pulse 88 10/12/22 08:55 Resp 18 10/12/22 08:55 BP 115/63 10/12/22 08:55 Pulse Ox 98 10/12/22 08:55 O2 Del Method Room Air 10/11/22 15:30 Pain score (VAS): 1-2 I/O: Intake & Output 10/11/22 10/12/22 10/12/22 23:59 07:59 15:59 Intake Total 240 2800 Output Total 520 900 Balance -280 1900 Patient feedback: Patient satisfied with anesthetic care.
[2022-10-12 12:50] VITALS: BP 129/71; PULSE 88; RESP 18; TEMP 36.8; O2SAT 99
[2022-10-12 16:15] LABS: Rapid Plasma Reagin Non-Reactive (NonReactive)
[2022-10-12 23:25] VITALS: BP 145/85; PULSE 84; RESP 20; TEMP 36.7
[2022-10-13] MEDS: IBUPROFEN 600 MG TABLET PO ×2 (01:18→09:58)
[2022-10-13] MEDS: HYDROcodone/acetaminophen (*CRX) 5-325 MG TABLET 1 TAB PO ×3 (02:02→09:57)
[2022-10-13] MEDS: MULTIVIT/MIN/PREN/FOL AC/IRON TABLET 1 TAB PO (07:36)
[2022-10-13] MEDS: DOCUSATE SODIUM 100 MG CAPSULE PO (07:36)
--- NOTE | 2022-10-13 08:42 | PM.OBPNVD ---
OB - PN: Subj Subjective Date/time seen: 10/13/22 08:42 Patient comments: no complaints, pain well controlled, incisional pain, tolerating diet and flatus present OB - PN: Obj Data Labs 10/12/22 05:03 Labs: Laboratory Results - last 24 hr 10/11/22 10:36 RPR Non-reactive OB - PN A/P Plan day: 3 Plan: routine care, discharge home and other Comments: Incision check in one week. Given precautions Time Spent With Patient Time: Total time spent is greater than 50% in coordination of care (as documented) at patient's floor/unit and/or counseling patient: Exam Const: General: comfortable, no acute distress and alert Resp: Effort & Inspection: normal respiratory effort Auscultation: no crackles, no rales and no rhonchi Cardio: Rate: regular rate Heart sounds: no click, no murmurs and no rubs GI: Inspection: non-distended GI Palp: No Tenderness to palpation present (GI) Auscultation: normal bowel sounds Other: Incision - CDI Extrem: General: normal to inspection, no pedal edema and no calf tenderness
--- NOTE | 2022-10-13 08:43 | P.DS_ITS ---
DS: Admitting Diagnosis Discharge Date 10/13/22 Admitting Diagnosis term DS: Discharge Diagnosis Discharge Diagnosis (1) Previous section: Code(s): Z98.891 - History of uterine scar from previous surgery Status: Acute OB - DS: Summary OB Procedures : None OB Procedures Intrapartum: OB Procedures: : None Peripartum Data Procedures: Procedures Operation Date: 10/11/22 12:00 Actual Procedure Side Surgeon p Repeat Section Tab Ellsworth MD Time Spent with Patient Time attestation: Total time spent providing and/or coordinating discharge services: DS: Data Data Completed and Pending Labs on day of discharge: Labs from last 24 hours 10/11/22 10:36 RPR Non-reactive Discharge Plan Discharge Discharging Clinician: Tab Ellsworth Patient Disposition: Home, Self-Care Activity: pelvic rest Diet: regular Patient Instructions: Antibiotic Form Stand Alone Forms: General Discharge Information Follow-up/Referrals: Tab Ellsworth MD [Physician] - Discharge Medications: New hydrocodone-acetaminophen 5-325 mg tablet 1 tablet PO Q4H PRN (Reason: pain) Qty: 25 0RF Discontinued [id number]-[id number] 3-fat com #1 27-1-300 mg Capsule 1 cap PO DAILY insulin NPH isoph U-100 human 100 unit/mL Cartridge 30 unit SUBCUT HS Date of admission: 10/11/22 09:41 Primary Care Provider: PHYSICIAN,TELECOMMUNICATIONS ANALYST Admitting Provider: Tab Ellsworth Attending physician on admission: Tab Ellsworth Condition: Stable
[2022-10-13 08:45] VITALS: BP 119/61; PULSE 81; RESP 18; TEMP 37.6; O2SAT 99
--- NOTE | 2022-10-13 13:23 | PC.NURSE ---
Patient viewed the discharge video Mother & Baby Care, The First Two Weeks . Patient was given the opportunity and encouraged to ask questions. Patient verbalized understanding of information shared and has been given the mother/baby guide for home reference.
[2022-10-14 09:40] VITALS: BP 129/53; PULSE 90; RESP 18; TEMP 37.2; O2SAT 98
== END 2022-10-13 14:45 | disposition home or self-care (01) | DRG 540 ==
LOC: ANHLDR 09:44 → ANHOB2 15:54
PROVIDERS: Admitting Provider Obstetrics & Gynecology; Visit Provider Obstetrics & Gynecology
PROC: 10D00Z1 Extraction of Products of Conception, Low, Open Approach (ICD-10-PCS; CPT 59514; principal; 2022-10-11 12:00)
DX: O34.211 Maternal care for low transverse scar from previous cesarean delivery (principal); O24.429 Gestational diabetes mellitus in childbirth, unspecified control; Z37.0 Single live birth; Z3A.39 39 weeks gestation of pregnancy; Z23 Encounter for immunization; Z86.19 Personal history of other infectious and parasitic diseases
CPT/HCPCS: 36415; 82948; 85025; 86592; 86850; 86900; 86901; 90471; 90686; A9270; G0008; J0690; J1200; J1885; J2274; J2370; J2590; J7120